=== PATIENT | female | born 1985 | race Caucasian/White ===

== ENCOUNTER 2019-08-11 14:04 | Outpatient (CLI) | payer OTHER, SELFPAY ==
[2019-08-11 15:01] LABS: Hematocrit 33.9 % (37.0-47.0); Hemoglobin 10.9 g/dL (12.0-15.0); Mean Corpuscular HGB Conc 32.2 g/dl (32-36); Mean Corpuscular Hemoglobin 30.2 pg (26-34); Mean Corpuscular Volume 93.9 fl (80-100); Mean Platelet Volume 10.2 fl (7.4-10.4); Platelet Count Result 195 k/mm3 (150-375); Red Blood Count 3.61 M/mm3 (4.2-5.4); Red Cell Distribution Width 13.3 % (11.5-14.5); White Blood Count 6.9 K/mm3 (4.5-10.0)
[2019-08-11 15:16] LABS: Alanine Aminotransferase 26 U/L (4-35); Albumin Level 3.3 g/dL (3.5-5.1); Alkaline Phosphatase 139 U/L (38-126); Aspartate Amino Transferase 37 U/L (14-36); Bilirubin,Total 0.2 mg/dL (0.2-1.3); Blood Urea Nitrogen 12 mg/dL (7-17); Calcium 8.7 mg/dL (8.4-10.2); Carbon Dioxide 17 mmol/L (22-30); Chloride 108 mmol/L (98-107); Estimated Glomerular Filt Rate > 60; Glucose 71 mg/dL (65-105); Sodium 131 mmol/L (137-145); Uric Acid 5.6 mg/dL (2.5-7.5)
== END 2019-08-11 14:05 | disposition home or self-care (01) ==
PROVIDERS: PCP Family Medicine; Visit Provider Obstetrics & Gynecology
DX: O13.9 Gestational [pregnancy-induced] hypertension without significant proteinuria, unspecified trimester (principal); Z3A.00 Weeks of gestation of pregnancy not specified
CPT/HCPCS: 36415; 80053; 84550; 85027

== ENCOUNTER 2019-08-15 20:31 | Outpatient (CLI) | payer OTHER, SELFPAY ==
[2019-08-15 21:16] LABS: Basophils Percent Auto 0.1 % (0.2-1.2); Eosinophils Percent Auto 0.5 % (0-4.4); Hematocrit 33.2 % (37.0-47.0); Hemoglobin 10.8 g/dL (12.0-15.0); Immature Granulocyte Absolute 0.05 K/mm3 (0.00-0.031); Immature Granulocyte Percent A 0.7 % (0-0.5); Lymphocytes Absolute Auto 1.65 K/mm3 (0.9-3.2); Lymphocytes Percent Auto 22.2 % (18.3-44.2); Mean Corpuscular HGB Conc 32.5 g/dl (32-36); Mean Corpuscular Hemoglobin 30.1 pg (26-34); Mean Corpuscular Volume 92.5 fl (80-100); Mean Platelet Volume 10.1 fl (7.4-10.4); Monocytes Absolute Auto 0.9 K/mm3 (0.1-0.6); Monocytes Percent Auto 11.7 % (2.6-8.5); Neutrophils Absolute Auto 4.8 K/mm3 (1.3-6.7); Neutrophils Percent Auto 64.8 % (45.5-73.1); Platelet Count Result 179 k/mm3 (150-375); Red Blood Count 3.59 M/mm3 (4.2-5.4); Red Cell Distribution Width 13.6 % (11.5-14.5); White Blood Count 7.4 K/mm3 (4.5-10.0)
[2019-08-15 21:18] LABS: Add Urine Microscopic? NO; Appearance Urine Clear (Clear); Bilirubin Urine Negative (Negative); Blood Urine Negative (Negative); Color Urine Straw (Yellow); Glucose Urine UA Negative (Negative); Ketones Urine Negative (Negative); Leukocyte Esterase Ur Negative LEU/UL (NEGATIVE); Nitrate Urine Negative (Negative); Protein Urine Negative (Negative); Urobilinogen Urine Negative mg/dL (<2.0)
[2019-08-15 21:28] LABS: Alanine Aminotransferase 24 U/L (4-35); Albumin Level 3.2 g/dL (3.5-5.1); Alkaline Phosphatase 143 U/L (38-126); Aspartate Amino Transferase 31 U/L (14-36); Bilirubin,Total < 0.1 mg/dL (0.2-1.3); Blood Urea Nitrogen 14 mg/dL (7-17); Calcium 9.1 mg/dL (8.4-10.2); Carbon Dioxide 20 mmol/L (22-30); Chloride 106 mmol/L (98-107); Estimated Glomerular Filt Rate > 60; Glucose 107 mg/dL (65-105); Potassium 3.9 mmol/L (3.4-5.0); Sodium 132 mmol/L (137-145); Uric Acid 5.6 mg/dL (2.5-7.5)
[2019-08-15 22:00] VITALS: BP 128/69; PULSE 78
[2019-08-15 22:10] VITALS: BP 132/75
--- NOTE | 2019-08-16 07:35 | P.PNOB_ITS ---
OB - Triage/Final Diagnosis Visit Information Date of evaluation: 08/15/19 Reason for evaluation: other (rule out preeclampsia ) Evaluation Laboratory results: Laboratory Tests 08/15/19 08/15/19 08/15/19 21:02 21:03 21:03 WBC 7.4 RBC 3.59 L Hgb 10.8 L Hct 33.2 L MCV 92.5 MCH 30.1 MCHC 32.5 RDW 13.6 Plt Count 179 MPV 10.1 Immature Gran % (Auto) 0.7 H Neut % (Auto) 64.8 Lymph % (Auto) 22.2 [place] % (Auto) 11.7 H Eos % (Auto) 0.5 Baso % (Auto) 0.1 L Lymph # (Auto) 1.65 [place] # (Auto) 0.9 H Eos # (Auto) 0.0 Baso # (Auto) 0.0 Abs Immat Gran (auto) 0.05 H Absolute Neuts (auto) 4.8 Absolute Nucleated RBC 0.0 Nucleated RBC % 0.0 Sodium 132 L Potassium 3.9 Chloride 106 Carbon Dioxide 20 L BUN 14 Creatinine 0.70 Estim Creat Clear Calc Not Reportable Estimated GFR > 60 Glucose 107 H Uric Acid 5.6 Calcium 9.1 Total Bilirubin < 0.1 L AST 31 ALT 24 Alkaline Phosphatase 143 H Total Protein 6.0 L Albumin 3.2 L Urine Color Straw Urine Appearance Clear Urine pH 7.0 Ur Specific [place] 1.010 Urine Protein Negative Urine Glucose (UA) Negative Urine Ketones Negative Ur Blood (Man) Negative Urine Nitrate Negative Urine Bilirubin Negative Urine Urobilinogen Negative Ur Leukocyte Esterase Negative Vital signs: Vital Signs - 24 hr 08/15/19 22:00 08/15/19 22:10 Pulse Rate 78 Blood Pressure [Right Arm] 128/69 132/75
== END 2019-08-15 22:25 | disposition home or self-care (01) ==
PROVIDERS: Student in an Organized Health Care Education/Training Program; PCP Family Medicine; Visit Provider Obstetrics & Gynecology
DX: O13.9 Gestational [pregnancy-induced] hypertension without significant proteinuria, unspecified trimester (principal)
CPT/HCPCS: 36415; 59025; 80053; 81003; 84550; 85025; 87086

== ENCOUNTER 2019-08-18 07:56 | Outpatient (RCR) | payer OTHER, SELFPAY ==
[2019-07-17 10:30] VITALS: BP 136/74; PULSE 101
[2019-07-22 08:12] VITALS: BP 124/65; PULSE 87
[2019-07-29 12:39] VITALS: BP 128/72; PULSE 104
[2019-08-04 08:01] VITALS: BP 125/71; PULSE 87
[2019-08-11 12:18] VITALS: BP 116/80; PULSE 115
[2019-08-18 08:33] VITALS: BP 146/75; PULSE 98
== END 2019-08-21 07:49 | disposition home or self-care (01) ==
LOC: ANHOBOP 07:56
PROVIDERS: PCP Family Medicine; Visit Provider Obstetrics & Gynecology
DX: O09.293 Supervision of pregnancy with other poor reproductive or obstetric history, third trimester (principal); Z3A.32 32 weeks gestation of pregnancy; Z3A.33 33 weeks gestation of pregnancy; Z3A.34 34 weeks gestation of pregnancy; Z3A.35 35 weeks gestation of pregnancy; Z3A.36 36 weeks gestation of pregnancy; Z3A.37 37 weeks gestation of pregnancy
CPT/HCPCS: 59025

== ENCOUNTER 2019-08-19 09:50 | Outpatient (CLI) | payer OTHER, SELFPAY ==
[2019-08-19 10:23] LABS: Hematocrit 34.9 % (37.0-47.0); Hemoglobin 11.1 g/dL (12.0-15.0); Mean Corpuscular HGB Conc 31.8 g/dl (32-36); Mean Corpuscular Hemoglobin 29.4 pg (26-34); Mean Corpuscular Volume 92.3 fl (80-100); Mean Platelet Volume 10.2 fl (7.4-10.4); Platelet Count Result 182 k/mm3 (150-375); Red Blood Count 3.78 M/mm3 (4.2-5.4); Red Cell Distribution Width 13.7 % (11.5-14.5); White Blood Count 7.9 K/mm3 (4.5-10.0)
[2019-08-19 13:21] LABS: Rapid Plasma Reagin Non-Reactive (NonReactive)
== END 2019-08-19 09:51 | disposition home or self-care (01) ==
LOC: ANHLAB 09:51
PROVIDERS: PCP Family Medicine; Visit Provider Obstetrics & Gynecology
DX: Z01.812 Encounter for preprocedural laboratory examination (principal)
CPT/HCPCS: 36415; 85027; 86592; 86850; 86900; 86901

== ENCOUNTER 2019-08-20 12:43 | Inpatient (IN) | payer OTHER, SELFPAY ==
[2019-08-20] VITALS (84 sets, daily range): BP systolic 68–132; BP diastolic 38–93; PULSE 43–255; RESP 12–21; TEMP 36.1–36.9; O2SAT 93–100; BMI 43.7
--- NOTE | 2019-08-20 13:18 | PM.IMHP ---
H&P: HPI History of Present Illness Chief complaint: Repeat Section w Bilateral Tubal Ligation Narrative: 33 y/o at 37 2/7 weeks gestation here for repeat . She has chronic HTN which has been harder to control recently. No proteinuria. No significant headaches or visual field change, no epigastric or RUQ pain. Good movement. Both prior pregnancies delivered early (one at 35 weeks and one at 36 weeks) for preeclampsia. Also she has a son with a chromosome 22q deletion. Her NIPT was negative in this . GBS is neg. GCT normal at 128. Apos, RI, HepBSAg neg, RPR neg, HIV neg. Ultrasound exam at 34 weeks showed EFW 6#10oz, in the 95th percentile. Irregular contractions. No vaginal bleeding or leakage of fluid. In addition, she would like a tubal ligation for contraception. Review of Systems Review of Systems: All systems reviewed & are unremarkable except as noted in HPI and below PMFSH Surgical History Surgical History (Updated 08/20/19 @ 13:22 by Lucius Barrios MD) History of delivery Family History Family History Mother Bilateral cataracts Myrna's disease Father Hypertension High cholesterol Multiple myeloma Social History Social History Substance use: never Gender identity (if verbalized by the patient): Female Spiritual care concerns: No Meds Home Medications and Allergies Home Medications Medication Instructions Recorded Confirmed Type PNV cmb#95-ferrous fumarate-FA 1 tablet PO DAILY 08/11/19 08/15/19 History [] fluticasone propionate [Flonase 1 spray INTRANASAL DAILY 08/11/19 08/15/19 History Allergy Relief] nifedipine 60 mg PO DAILY 08/11/19 08/15/19 History Allergies Allergy/AdvReac Type Severity Reaction Status Date / Time No Known Allergies Allergy Unverified 10/06/18 09:25 Vital Signs Vital Signs - 24 hr 08/20/19 13:00 08/20/19 13:05 08/20/19 13:07 Pulse Rate 101 H Blood Pressure 124/89 Pulse Oximetry 100 99 08/20/19 13:10 08/20/19 13:15 08/20/19 13:16 Pulse Rate 97 Blood Pressure 132/93 H Pulse Oximetry 99 99 Exam Const: Orientation/consciousness: patient oriented x3 Other: Well-developed, well-nourished female in no acute distress. Neck: Thyroid: thyroid normal Lymphatic: no lymphadenopathy noted (in neck, axilla or inguinal nodes) Resp: Effort & Inspection: normal respiratory effort Auscultation: clear to auscultation bilaterally Cardio: Rate: regular rate Rhythm: regular rhythm Heart sounds: S1 normal heart sound present and S2 normal heart sound present GI: Other: ABD: Soft, nontender, nondistended, gravid, FH 38 cm. No RUQ or midepigastric tenderness. : General: Yes no CVA tenderness Other: Cervix closed. Back/Spine/Pelvis: Back: no CVA tenderness Skin: General skin exam: normal color and no rashes or lesions noted Neuro: General: patient oriented x3 Extrem: Other: Extremities: nontender with pitting edema to the knees. Psych: Mental Status: mental status grossly normal Affect: normal affect Assessment and Plan Assessment and plan (1) History of delivery: Code(s): Z98.891 - History of uterine scar from previous surgery Status: Acute (2) Chronic hypertension during : Code(s): O10.919 - Unspecified pre-existing hypertension complicating , unspecified trimester Status: Acute Assessment and Plan: Because her BP has become more difficult to control, and in light of her previous history, I have offered to deliver her after 37 completed weeks. Because of her prior cesareans, I offered her a repeat . She is also interested in permanent contraception with tubal ligation. She does not desire any future childbearing. She understands there are temporary methods of contraception av
[2019-08-20] MEDS: LACTATED RINGERS 1,000 ML 125 ML IV CONT ×2 (13:31→14:25)
--- NOTE | 2019-08-20 13:49 | LDADM ---
This patient, Erika Lowe, was admitted to Labor/Delivery/Recovery 120 on 08/20/19 at 12:43. Plans for surgery/ and pain management were discussed with patient. Patient/family oriented to hospital policies and general routines including ID bracelet, bed and alarms, visiting hours, pain management, procedures, bathroom and other care routines, personal items, smoking policy, room service/diet and guest tray routines, infant security routines, and visiting hours. Patient/Family are encouraged to report perceived risks to care and to ask questions if they do not understand what they are told or what they should do. See OBIX for further documentation.
--- NOTE | 2019-08-20 13:50 | WPDANESEPPF ---
Anes - Initial Pre Proc Eval Procedure: Operation Date: 08/20/19 15:00 Proposed Procedures p Repeat Section With Bilateral Tubal Ligation With Fallopian Rings - Lucius Barrios MD Date/Time: 08/20/19 13:50 Surgeon: Lucius Barrios MD Pre Op Diagnosis: Repeat Section w Bilateral Tubal Ligation Patient Data Age: 33 Gender: F Height: 5 ft 6 in Weight: 123 kg Last Vital Signs Pulse 101 H 08/20/19 13:46 BP 126/83 08/20/19 13:46 Pulse Ox 98 08/20/19 13:45 Allergies Allergy/AdvReac Type Severity Reaction Status Date / Time No Known Allergies Allergy Unverified 10/06/18 09:25 Home Medications Medication Instructions Recorded Confirmed Type PNV cmb#95-ferrous fumarate-FA 1 tablet PO DAILY 08/11/19 08/20/19 History [] fluticasone propionate [Flonase 1 spray INTRANASAL DAILY 08/11/19 08/20/19 History Allergy Relief] calcium carbonate [Tums] 400 mg PO QID PRN 08/20/19 08/20/19 History nifedipine [Procardia XL] 60 mg PO DAILY 08/20/19 08/20/19 History Laboratory Tests 08/20/19 13:35 Sodium Pending Potassium Pending Chloride Pending Carbon Dioxide Pending BUN Pending Creatinine Pending Estim Creat Clear Calc Pending Estimated GFR Pending Glucose Pending Uric Acid Pending Calcium Pending Total Bilirubin Pending AST Pending ALT Pending Alkaline Phosphatase Pending Total Protein Pending Albumin Pending Patient hx anesthesia problems: none Family hx anesthesia problems: none PMFSH Surgical History Surgical History History of delivery Family History Family History Mother Bilateral cataracts Myrna's disease Father Hypertension High cholesterol Multiple myeloma Social History Social History Substance use: never Gender identity (if verbalized by the patient): Female Spiritual care concerns: No Anes - Eval Final PreProcedure Day of Procedure 08/20/19 13:50 Patient weight: morbidly obese Heart: regular rate and rhythm Lungs: clear to auscultation Airway: Mallampati scale class II Neurological: alert and oriented Last oral intake: >/= 8 hours ASA classification: III Emergent: no Anesthetic plan: proceed Anesthesia type and monitoring: regional spinal and standard monitoring Informed Consent: The patient's anesthetic plan and its attendant risks and benefits were discussed with the patient/family/POA. Questions were solicited and answers provided to the satisfaction of the patient/family/POA.
[2019-08-20 13:58] LABS: Alanine Aminotransferase 19 U/L (4-35); Albumin Level 3.5 g/dL (3.5-5.1); Alkaline Phosphatase 157 U/L (38-126); Aspartate Amino Transferase 31 U/L (14-36); Bilirubin,Total 0.3 mg/dL (0.2-1.3); Blood Urea Nitrogen 14 mg/dL (7-17); Calcium 9.4 mg/dL (8.4-10.2); Carbon Dioxide 20 mmol/L (22-30); Chloride 109 mmol/L (98-107); Estimated CRCL calculation 118 ml/min; Estimated Glomerular Filt Rate > 60; Glucose 75 mg/dL (65-105); Potassium 4.1 mmol/L (3.4-5.0); Sodium 134 mmol/L (137-145); Uric Acid 5.8 mg/dL (2.5-7.5)
[2019-08-20] MEDS: ceFAZolin 3 GM/D5W 100 ML 100 ML IVPB (14:39)
--- NOTE | 2019-08-20 15:48 | P.PCNOB_ITS ---
OB - Delivery Note Procedure Delivery date: 08/20/19 Procedure: Procedures Operation Date: 08/20/19 15:00 Actual Procedures Side Surgeon p Repeat Section With Bilateral Tubal Ligation Bilateral Lucius Barrios MD Repeat low transverse delivery with bilateral tubal ligation via modified Ailyn technique Estimated blood loss (mL): 385 Anesthesia type: Spinal Disposition: PACU Complications: None Narrative: The patient was taken to the operating room where she was prepared and draped in the usual sterile fashion in dorsal supine position with a leftward tilt. She received cefazolin preoperatively. Spinal anesthesia was found to be adequate. A Pfannenstiel skin incision was made along the previous scar line and was carried through to the underlying layer of the fascia. The fascia was incised in the midline and the incision was extended laterally. The fascia was dissected free of the underlying rectus muscles. The rectus muscles were in the midline. The peritoneum was identified, tented up and entered sharply. The peritoneal incision was extended superiorly and inferiorly with good visualization of the bladder. The bladder blade was placed. The vesicouterine peritoneum was identified, tented up and entered sharply. The incision was extended laterally and the bladder flap was developed. The bladder blade was replaced. The uterus was then incised sharply in a transverse fashion along the lower uterine segment. The incision was extended laterally. The infant's head was delivered atraumatically to the sterile field, followed by the body. The nose and mouth were bulb suctioned. After a delay, the cord was clamped and cut. The was handed off the field. Cord blood was collected. The placenta was removed manually and was passed off the field. The uterus was exteriorized and cleared of all clots and debris. The uterine incision was reapproximated using 0 Monocryl in a running, locked fashion. Excellent hemostasis resulted as did excellent reapproximation of the normal anatomy. The left fallopian tube was then identified by following it out to the fimbriated end. It was grasped in the midportion with a Wei clamp and a loop of tube was ligated with a free tie of 0 plain gut. The tubal segment was then transected and the specimen was passed off to be sent to pathology. Hemostasis was excellent. Attention was turned to the right fallopian tube which was similarly identified, ligated and transected. Once again, excellent hemostasis resulted. The uterus was returned the abdomen. The pelvis was irrigated copiously with warmed normal saline. Rigorous hemostasis was assured. The fascial layer was reapproximated using 0 Vicryl in a running fashion. The skin was closed with a running, subcuticular stitch of 4 0 Vicryl. Dermaflex was applied externally. Sponge, lap, needle and instrument counts were correct. The patient was taken to the recovery room in stable condition. The went to the nursery in stable condition. I was present and scrubbed the entire procedure. [place] Baby Date of : 08/20/19 Time of : 15:11 Weeks of gestation at delivery: 37 Infant gender: Male Weight (pounds): 9 Weight (ounces): 5 presentation: vertex Placenta delivery description: Manual Removal and Normal Configuration cord vessel description: 3 Vessels score one minute: 8 score five minutes: 9
--- NOTE | 2019-08-20 15:51 | P.DS_ITS ---
DS: Admitting Diagnosis Admitting Diagnosis Admitting Diagnosis: IUP at 37 2/7 weeks Chronic HTN with worsening BP control Prior x 2 Desired sterility DS: Discharge Diagnosis Discharge Diagnosis (1) Unwanted fertility: Code(s): Z30.09 - Encounter for other general counseling and advice on contraception Status: Acute (2) Chronic hypertension during : Code(s): O10.919 - Unspecified pre-existing hypertension complicating , unspecified trimester Status: Acute (3) History of delivery: Code(s): Z98.891 - History of uterine scar from previous surgery Status: Acute OB - DS: Summary OB Procedures : None OB Procedures Intrapartum: OB Procedures: : None Peripartum Data Procedures: Procedures Operation Date: 08/20/19 15:00 Actual Procedures Side Surgeon p Repeat Section With Bilateral Tubal Ligation via modified Ailyn technique Bilateral Lucius Barrios MD DS: Data Data Completed and Pending Pending studies at discharge: Pending at discharge 08/20/19 15:20 Surgical [PTH] Routine Labs on day of discharge: Labs from last 24 hours 08/20/19 13:35 Sodium 134 L Potassium 4.1 Chloride 109 H Carbon Dioxide 20 L BUN 14 Creatinine 0.80 Estim Creat Clear Calc 118 Estimated GFR > 60 Glucose 75 Uric Acid 5.8 Calcium 9.4 Total Bilirubin 0.3 AST 31 ALT 19 Alkaline Phosphatase 157 H Total Protein 7.0 Albumin 3.5 Discharge Plan Discharge Attending physician on discharge: Lucius Barrios Discharging Clinician: Lucius Barrios Patient Disposition: Home, Self-Care Activity: may shower, may drive after 2 weeks and pelvic rest Diet: regular Wound Care Instructions: incision open to air Discharge Instructions: Call or return if temperature above 100.4? F, increased abdominal pain, increased vaginal bleeding or any new problems. Stand Alone Forms: General Discharge Information Follow-up/Referrals: Lucius Barrios MD [Physician] - (4 weeks) Discharge Medications: New hydrocodone-acetaminophen [[place]] 5-325 mg tablet 1 - 2 tablet PO Q6H PRN (Reason: pain) Qty: 30 RF: 0 ibuprofen 600 mg tablet 600 mg PO Q6H PRN (Reason: cramps) Qty: 30 RF: 0 hydrocodone-acetaminophen [[place]] 5-325 mg tablet 1 - 2 tablet PO Q6H PRN (Reason: pain) Qty: 30 RF: 0 ibuprofen 600 mg tablet 600 mg PO Q6H PRN (Reason: cramps) Qty: 30 RF: 0 No Action fluticasone propionate [Flonase Allergy Relief] 50 mcg/actuation [place],Suspension 1 spray INTRANASAL DAILY RF: 0 PNV cmb#95-ferrous fumarate-FA [] 28 mg iron- 800 mcg Tablet 1 tablet PO DAILY RF: 0 nifedipine [Procardia XL] 60 mg Tablet Extended Release 24hr 60 mg PO DAILY RF: 0 calcium carbonate [Tums] 200 mg calcium (500 mg) Tablet,Chewable 400 mg PO QID PRN (Reason: Heartburn) RF: 0 Date of admission: 08/20/19 12:43 Primary Care Provider: Lola,Megha Chanel Admitting Provider: Lucius Barrios Attending physician on admission: Lucius Barrios
[2019-08-20] MEDS: ONDANSETRON INJ 4 MG/2 ML VIAL IV PUSH (16:26)
--- NOTE | 2019-08-20 16:50 | SUR.PHASEI ---
Nausea resolved after Zofran.
--- NOTE | 2019-08-20 16:50 | SUR.PHASEI ---
Addendum entered by Susie Hardin RN 08/20/19 17:27: 1626- Zofran given for nausea. Original Note: Zofran given for nausea.
[2019-08-20] MEDS: LORATADINE 10 MG TABLET PO (17:14)
--- NOTE | 2019-08-20 17:28 | SUR.PHASEI ---
Omar Fajardo NUTRITION CONSULTANT informed maternal bradycardia in upper 40's to low 50's continues. Pt asymptomatic- denies light headedness, dizziness, nausea, chest discomfort or shortness of breath. O2 sats 99-100 % and BP stable at 110's / 60-70's.
[2019-08-20] MEDS: OXYTOCIN 30 UNITS/NS 500 ML 30 UNITS/500 ML BAG 125 UNITS IV CONT (18:15)
--- NOTE | 2019-08-20 18:35 | PC.NURSE ---
Pt to nursery per stretcher to see .
[2019-08-21 03:50] LABS: Basophils Percent Auto 0.1 % (0.2-1.2); Hematocrit 31.6 % (37.0-47.0); Hemoglobin 10.2 g/dL (12.0-15.0); Immature Granulocyte Absolute 0.07 K/mm3 (0.00-0.031); Immature Granulocyte Percent A 0.5 % (0-0.5); Lymphocytes Absolute Auto 1.19 K/mm3 (0.9-3.2); Lymphocytes Percent Auto 8.4 % (18.3-44.2); Mean Corpuscular HGB Conc 32.3 g/dl (32-36); Mean Corpuscular Hemoglobin 29.2 pg (26-34); Mean Corpuscular Volume 90.5 fl (80-100); Mean Platelet Volume 10.5 fl (7.4-10.4); Monocytes Absolute Auto 1.2 K/mm3 (0.1-0.6); Monocytes Percent Auto 8.2 % (2.6-8.5); Neutrophils Absolute Auto 11.8 K/mm3 (1.3-6.7); Neutrophils Percent Auto 82.8 % (45.5-73.1); Platelet Count Result 164 k/mm3 (150-375); Red Blood Count 3.49 M/mm3 (4.2-5.4); Red Cell Distribution Width 13.6 % (11.5-14.5); White Blood Count 14.2 K/mm3 (4.5-10.0)
[2019-08-21 04:05] VITALS: BP 105/62; PULSE 60; RESP 16; TEMP 36.8
[2019-08-21] MEDS: IBUPROFEN 600 MG TABLET PO ×4 (04:05→22:30)
[2019-08-21 08:40] VITALS: BP 115/63; PULSE 70; RESP 16; TEMP 37; O2SAT 96
--- NOTE | 2019-08-21 09:16 | WPDANLDPN2 ---
Anes-Prog Note L&D Date/Time: 08/21/19 09:16 Comfortable throughout: section Neuraxial method: spinal Epidural/Spinal procedure site: clean & non-tender Neuro status: Neuro function grossly intact. Cardiovascular status: normal Respiratory status: normal Airway patency: baseline Mental status: baseline Post-Op hydration status: normal Vital Signs: Last Vital Signs Temp 98.3 F 08/21/19 04:05 Pulse 60 08/21/19 04:05 Resp 16 08/21/19 04:05 BP 105/62 08/21/19 04:05 Pulse Ox 100 08/20/19 18:34 I/O: Intake & Output 08/20/19 08/21/19 08/21/19 23:59 07:59 15:59 Intake Total 500 Output Total 335 1000 Balance -335 -500 Post-procedural complaints: pruritis moderate, treatment effective Patient feedback: Patient satisfied with anesthetic care.
--- NOTE | 2019-08-21 09:17 | WPDANLDNPN2 ---
Anes-Prog Note L&D-Neuraxial Date/Time: 08/21/19 09:17 Neuraxial medications: intrathecal PF morphine Opiod-related complaints: pruritis moderate, treatment effective Patient feedback: Patient satisfied with post-operative pain management.
[2019-08-21] MEDS: FLUTICASONE PROPIONATE 0.05% NA SPR 16 GM BTL (*BKC) 1 SPRAY NASAL (09:44)
[2019-08-21] MEDS: DOCUSATE SODIUM 100 MG CAPSULE PO ×2 (09:44→16:04)
[2019-08-21] MEDS: MULTIVIT/MIN/PREN/FOL AC/IRON TABLET 1 TAB PO (09:44)
[2019-08-21 11:35] VITALS: BP 114/70; PULSE 80; RESP 18; TEMP 37.4; O2SAT 98
--- NOTE | 2019-08-21 12:00 | PC.NURSE ---
Consult with pt., upon entering mother is attempting to breast. Mother is attempting in cross cradle, holding breast and guiding infant into latch. Infant is sleepy making eager attempts to latch, he will make a few suckles then pull off. Mother continues to return infant to breast. Discussed an early infant. Mother reports last child was early and was able to breastfeed after several weeks of pumping and supplementing. Mother is currently supplementing after each feeding attempt and will then pump using her own [place] Pump.
--- NOTE | 2019-08-21 13:04 | PM.OBPNVD ---
OB - PN: Subj Subjective Date/time seen: 08/21/19 13:04 Narrative: Pain OK. Tolerating diet. Would like circumcision for son. OB - PN: Obj Data Labs CBC & Chem 7: 08/21/19 03:06 08/20/19 13:35 Labs: Laboratory Results - last 24 hr 08/20/19 08/21/19 13:35 03:06 WBC 14.2 H RBC 3.49 L Hgb 10.2 L Hct 31.6 L MCV 90.5 MCH 29.2 MCHC 32.3 RDW 13.6 Plt Count 164 MPV 10.5 H Immature Gran % (Auto) 0.5 Neut % (Auto) 82.8 H Lymph % (Auto) 8.4 L [place] % (Auto) 8.2 Eos % (Auto) 0.0 Baso % (Auto) 0.1 L Lymph # (Auto) 1.19 [place] # (Auto) 1.2 H Eos # (Auto) 0.0 Baso # (Auto) 0.0 Abs Immat Gran (auto) 0.07 H Absolute Neuts (auto) 11.8 H Absolute Nucleated RBC 0.0 Nucleated RBC % 0.0 Sodium 134 L Potassium 4.1 Chloride 109 H Carbon Dioxide 20 L BUN 14 Creatinine 0.80 Estim Creat Clear Calc 118 Estimated GFR > 60 Glucose 75 Uric Acid 5.8 Calcium 9.4 Total Bilirubin 0.3 AST 31 ALT 19 Alkaline Phosphatase 157 H Total Protein 7.0 Albumin 3.5 OB - PN A/P Plan Comments: A: POD#1, doing well. P: Routine care. Reviewed circ. Exam Narrative: Exam Narrative: AVSS I/O OK ABD soft, nontender, fundus firm. Incision c/d/i. EXT nontender
--- NOTE | 2019-08-21 15:00 | PC.NURSE ---
Hospital pump set up for mother at bedside. Reviewed initiate phase on pump. Mother states she is comfortable with pumping on her own. Reviewed breast pump care and usage, pumping schedule, nipple care, and collection and storage of breast milk. Mother states she will use the 27mm flange size. Patient verbalizes understanding of instructions.
[2019-08-21 17:00] VITALS: PULSE 86; RESP 18; O2SAT 98
[2019-08-21 17:20] VITALS: BP 117/69; PULSE 86
[2019-08-21 20:50] VITALS: BP 129/83; PULSE 94; RESP 14; TEMP 37.6; O2SAT 98
[2019-08-22] MEDS: IBUPROFEN 600 MG TABLET PO ×3 (05:13→17:59)
[2019-08-22 07:40] VITALS: BP 132/70; PULSE 72; RESP 18; TEMP 37.4; O2SAT 98
[2019-08-22] MEDS: MULTIVIT/MIN/PREN/FOL AC/IRON TABLET 1 TAB PO (09:01)
[2019-08-22] MEDS: FLUTICASONE PROPIONATE 0.05% NA SPR 16 GM BTL (*BKC) 1 SPRAY NASAL (09:03)
[2019-08-22] MEDS: polyethylene glycoL 3350 17 GM POWD.PACK PO (09:03)
--- NOTE | 2019-08-22 12:33 | PM.OBPNVD ---
OB - PN: Subj Subjective Date/time seen: 08/22/19 12:33 Narrative: Pain OK. Tolerating diet. Thinking about going home. OB - PN: Obj Data Labs CBC & Chem 7: 08/21/19 03:06 08/20/19 13:35 OB - PN A/P Plan Comments: A: POD#2, doing well. P: Home to f/u 4 weeks. Exam Narrative: Exam Narrative: AVSS ABD soft, nontender, fundus firm. Incision c/d/i. EXT nontender
[2019-08-22 13:30] VITALS: BP 121/76; PULSE 76
[2019-08-22] MEDS: NIFEdipine 30 MG TAB.ER.24 PO (14:15)
--- NOTE | 2019-08-22 17:52 | PC.NURSE ---
Pt's 2 prescriptions for [place] and Ibuprofen ordered by Dr. Barrios, given to FOB so that they could get the meds this evening in case baby is OK'd for discharge tonight, and mother is also discharged home.
[2019-08-22 20:10] VITALS: BP 124/82; PULSE 85; RESP 14; TEMP 36.7; O2SAT 97
[2019-08-23] MEDS: IBUPROFEN 600 MG TABLET PO ×2 (01:55→09:18)
[2019-08-23 07:30] VITALS: BP 131/84; PULSE 85; RESP 18; TEMP 36.6
[2019-08-23] MEDS: MULTIVIT/MIN/PREN/FOL AC/IRON TABLET 1 TAB PO (09:15)
[2019-08-23] MEDS: DOCUSATE SODIUM 100 MG CAPSULE PO (09:15)
[2019-08-23] MEDS: polyethylene glycoL 3350 17 GM POWD.PACK PO (09:15)
[2019-08-23] MEDS: FLUTICASONE PROPIONATE 0.05% NA SPR 16 GM BTL (*BKC) 1 SPRAY NASAL (09:16)
[2019-08-23] MEDS: NIFEdipine 30 MG TAB.ER.24 PO (09:17)
--- NOTE | 2019-08-23 10:59 | PM.OBPNVD ---
OB - PN: Subj Subjective Date/time seen: 08/23/19 10:59 Narrative: Pain OK. Tolerating diet. Would like to go home. OB - PN: Obj Data Labs CBC & Chem 7: 08/21/19 03:06 08/20/19 13:35 OB - PN A/P Plan Comments: A: POD#3, doing well. P: Home to f/u 4 weeks. Exam Narrative: Exam Narrative: AVSS ABD soft, nontender, fundus firm. Incision c/d/i. EXT nontender
[2019-08-25 08:21] VITALS: BP 143/81; PULSE 82; RESP 20
== END 2019-08-23 14:11 | disposition home or self-care (01) | DRG 784 ==
LOC: ANHLDR 15:53 → ANHOB2 19:53
PROVIDERS: Admitting Provider Obstetrics & Gynecology; PCP Family Medicine; Visit Provider Obstetrics & Gynecology
PROC: 10D00Z1 Extraction of Products of Conception, Low, Open Approach (ICD-10-PCS; CPT 59514; principal; 2019-08-20 15:00)
DX: O34.211 Maternal care for low transverse scar from previous cesarean delivery (principal); O10.92 Unspecified pre-existing hypertension complicating childbirth; Z37.0 Single live birth; Z3A.37 37 weeks gestation of pregnancy; Z30.2 Encounter for sterilization; O99.214 Obesity complicating childbirth; E66.01 Morbid (severe) obesity due to excess calories; O99.73 Diseases of the skin and subcutaneous tissue complicating the puerperium; L29.9 Pruritus, unspecified
CPT/HCPCS: 36415; 80053; 84550; 85025; 88302; 88307; A9270; J0131; J0690; J1100; J1200; J2274; J2370; J2405; J2590; J7120

== ENCOUNTER 2021-02-08 09:34 | Outpatient (CLI) | payer OTHER, SELFPAY ==
[2021-02-08 10:07] LABS: Basophils Percent Auto 0.5 % (0.2-1.2); Eosinophils Absolute Auto 0.2 K/mm3 (0-0.3); Eosinophils Percent Auto 2.5 % (0-4.4); Hematocrit 42.7 % (37.0-47.0); Hemoglobin 13.9 g/dL (12.0-15.0); Immature Granulocyte Absolute 0.06 K/mm3 (0.00-0.031); Immature Granulocyte Percent A 0.9 % (0-0.5); Lymphocytes Absolute Auto 1.84 K/mm3 (0.9-3.2); Lymphocytes Percent Auto 28.4 % (18.3-44.2); Mean Corpuscular HGB Conc 32.6 g/dl (32-36); Mean Corpuscular Hemoglobin 32.3 pg (26-34); Mean Corpuscular Volume 99.1 fl (80-100); Mean Platelet Volume 8.6 fl (7.4-10.4); Monocytes Absolute Auto 0.7 K/mm3 (0.1-0.6); Monocytes Percent Auto 10.7 % (2.6-8.5); Neutrophils Absolute Auto 3.7 K/mm3 (1.3-6.7); Platelet Count Result 245 k/mm3 (150-375); Red Blood Count 4.31 M/mm3 (4.2-5.4); Red Cell Distribution Width 12.5 % (11.5-14.5); White Blood Count 6.5 K/mm3 (4.5-10.0)
[2021-02-08 10:14] LABS: Hemoglobin A1C 5.3 % (<5.7)
[2021-02-08 10:19] LABS: Iron 74 ug/dL (37-170)
[2021-02-08 10:21] LABS: Alanine Aminotransferase 22 U/L (4-35); Albumin Level 4.4 g/dL (3.5-5.1); Alkaline Phosphatase 65 U/L (38-126); Anion Gap 7 mmol/L (8-16); Aspartate Amino Transferase 28 U/L (14-36); Bilirubin,Total 0.3 mg/dL (0.2-1.3); Blood Urea Nitrogen 16 mg/dL (7-17); Calcium 9.6 mg/dL (8.4-10.2); Carbon Dioxide 27 mmol/L (22-30); Chloride 104 mmol/L (98-107); Cholesterol 185 mg/dL (0-200); Estimated Glomerular Filt Rate > 60; Glucose 101 mg/dL (65-110); HDL Direct 51 mg/dL; Potassium 4.2 mmol/L (3.4-5.0); Sodium 138 mmol/L (137-145); Triglycerides 66 mg/dL (<150)
[2021-02-08 10:29] LABS: Percent Iron Saturation 21 % (20-50)
[2021-02-08 10:34] LABS: LDL Cholesterol Direct 102 mg/dL
[2021-02-08 10:40] LABS: Free T4 Free Thyroxine 0.85 ng/mL (0.78-2.19)
[2021-02-08 11:11] LABS: Vitamin D 25 Hydroxy 27.4 ng/mL
[2021-02-08 11:29] LABS: Folic Acid 7.5 ng/mL (2.76->20)
[2021-02-11 05:28] LABS: FSH 6.8 mIU/mL (***); LH 6.5 mIU/mL (***)
[2021-02-12 15:00] LABS: Testosterone Free 4.7 pg/mL (0.1-6.4); Testosterone Total 31 ng/dL (2-45)
== END 2021-02-08 09:35 | disposition home or self-care (01) ==
LOC: ANHLAB 09:40
PROVIDERS: PCP Family Medicine; Visit Provider Family Medicine
DX: Z00.00 Encounter for general adult medical examination without abnormal findings (principal); R63.5 Abnormal weight gain; L65.9 Nonscarring hair loss, unspecified; E55.9 Vitamin D deficiency, unspecified
CPT/HCPCS: 36415; 80048; 80061; 80076; 82306; 82607; 82728; 82746; 83001; 83002; 83036; 83498; 83540; 83550; 84402; 84403; 84439; 84443; 85025